=== PATIENT | female | born 1985 | race Caucasian/White ===

== ENCOUNTER 2017-06-11 16:16 | Emergency (ER) | END 2017-06-11 17:01 | disposition home or self-care (01) ==

== ENCOUNTER 2018-04-07 11:28 | Emergency (ER) | payer SELFPAY ==
[~2018-04-07] VITALS: Ht 157.5 cm; Wt 63.4 kg
[~2018-04-07 11:28] MED LIST: ALBU8.5H8 INH; DOXY100T20 PO; MED4DP PO
[2018-04-07 11:34] VITALS: BP 118/67; PULSE 81; RESP 20; Ht 157.5 cm; Wt 63.4 kg
[2018-04-07] MEDS ORDERED: HYDROCODONE/APAP (5/325) TAB PO ONE (13:00)
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
[2018-04-07] MEDS ORDERED: IBUP-1542 PO (13:53)
== END 2018-04-07 14:08 | disposition home or self-care (01) ==
LOC: FTE 11:28
DX: S59.911A Unspecified injury of right forearm, initial encounter (principal); S69.91XA Unspecified injury of right wrist, hand and finger(s), initial encounter; S16.1XXA Strain of muscle, fascia and tendon at neck level, initial encounter; V49.49XA Driver injured in collision with other motor vehicles in traffic accident, initial encounter